=== PATIENT | male | born 1955 | race Caucasian/White ===

== ENCOUNTER 2020-04-16 16:52 | Emergency (ER) | payer MEDICARE, SELFPAY ==
--- NOTE | ~2020-04-16 | CT_ITS ---
EXAMINATION: CT abdomen pelvis w con DATE: 04/16/2020 20:37 INDICATION: Bilateral flank pain. TECHNIQUE: Computed tomography (CT) of the abdomen and pelvis was performed without intravenous contr ast. Automated exposure control and iterative reconstruction technique were employed. The dose-length product was 352.47 mGy-cm. COMPARISON: [facility] AIF 05/09/2014, chest CT 10/20/2018 FINDINGS: The visualized portions of the lung bases demonstrate mild atelectasis. No pleural effusion . The heart size is normal. No pericardial effusion. There is mild elevation of right hemidiaphragm. The liver, gallbladder, spleen, pancreas, and left adrenal gland are normal. There is a 1.4 cm mass i n right adrenal gland measuring soft tissue attenuation without change, consistent with an adenoma. T here is moderate atrophy of left kidney. There are cysts in the kidneys measuring up to 7 mm on the r ight. There is an 11 mm mass in right kidney measuring soft tissue attenuation. There is a 2.9 cm mas s in left kidney measuring soft tissue attenuation. There are no dilated loops of bowel. There is div erticulosis of the colon without evidence of diverticulitis. The appendix is not visualized. There ar e no pathologically enlarged lymph nodes. There is no free intraperitoneal fluid. 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 There is calcified atherosclerosis of the aorta and many of the other arteries. Th ere is severe stenosis of left renal artery. There is severe stenosis of infrarenal aorta. There are stents in the common iliac arteries. There is severe lower lumbar spondylosis. IMPRESSION: 1. 2.9 cm mass in left kidney suspicious for renal cell carcinoma. 11 mm mass in right kidney, which may be a hemorrhagic cyst or less likely a solid neoplasm. Abdomen CT or MRI without and with contras t is recommended. 2. Arterial occlusive disease including severe stenosis of left renal artery and severe stenosis of i nfrarenal aorta. Reviewed, dictated and finalized at location A. IMPRESSION: 1. 2.9 cm mass in left kidney suspicious for renal cell carcinoma. 11 mm mass i n right kidney, which may be a hemorrhagic cyst or less likely a solid neoplasm . Abdomen CT or MRI without and with contrast is recommended. 2. Arterial occlusive disease including severe stenosis of left renal artery an d severe stenosis of infrarenal aorta.
[2020-04-16 16:55] VITALS: BP 173/96; PULSE 122; RESP 20; TEMP 37.7; O2SAT 94
[2020-04-16 17:07] LABS: Basophils Absolute Auto 0.1 K/mm3 (0.0-0.1); Basophils Percent Auto 1.2 % (0.2-1.2); Eosinophils Percent Auto 0.5 % (0-4.4); Hematocrit 54.6 % (42.0-52.0); Hemoglobin 19.2 g/dL (14.0-18.0); Immature Granulocyte Absolute 0.03 K/mm3 (0.00-0.031); Immature Granulocyte Percent A 0.5 % (0-0.5); Lymphocytes Absolute Auto 0.86 K/mm3 (0.9-3.2); Lymphocytes Percent Auto 13.4 % (18.3-44.2); Mean Corpuscular HGB Conc 35.2 g/dl (32-36); Mean Corpuscular Hemoglobin 32.7 pg (26-34); Mean Corpuscular Volume 92.9 fl (80-100); Mean Platelet Volume 8.5 fl (7.4-10.4); Monocytes Absolute Auto 0.8 K/mm3 (0.1-0.6); Monocytes Percent Auto 12.6 % (2.6-8.5); Neutrophils Absolute Auto 4.6 K/mm3 (1.3-6.7); Neutrophils Percent Auto 71.8 % (45.5-73.1); Platelet Count Result 334 k/mm3 (150-375); Red Blood Count 5.88 M/mm3 (4.6-6.20); Red Cell Distribution Width 14.8 % (11.5-14.5); White Blood Count 6.4 K/mm3 (4.5-10.0)
[2020-04-16 17:19] LABS: Blood Urea Nitrogen 10 mg/dL (9-20); Calcium 9.7 mg/dL (8.4-10.2); Carbon Dioxide 24 mmol/L (22-30); Chloride 97 mmol/L (98-107); Estimated CRCL calculation 77 ml/min; Estimated Glomerular Filt Rate > 60; Glucose 128 mg/dL (75-110); Potassium 3.6 mmol/L (3.4-5.0); Sodium 133 mmol/L (137-145)
[2020-04-16 20:04] LABS: Add Urine Microscopic? YES; Appearance Urine Clear (Clear); Bacteria Urine Trace /hpf; Bilirubin Urine Negative (Negative); Blood Urine Negative (Negative); Color Urine Yellow (Yellow); Glucose Urine UA Negative (Negative); Ketones Urine Negative (Negative); Leukocyte Esterase Ur Negative LEU/UL (Negative); Mucus Urine Rare /lpf; Nitrate Urine Negative (Negative); Protein Urine 1+ mg/dL (Negative); RBC Urine 0-2 /hpf (0-2); Specific Grav Ur 1.015 (1.001-1.035); Squamous Epithelial Cell Urine Few /hpf (Few); Urobilinogen Urine Negative mg/dL (<2.0); WBC Urine 0-3 /hpf
[2020-04-16 21:01] LABS: Lactic Acid Reflex 0.8 mmol/L (0.7-2.1)
[2020-04-16 21:05] LABS: CRP < 0.5 mg/dL (<1.0)
[2020-04-16] MEDS: SODIUM CHLORIDE 0.9% IV 1,000 ML 999 ML IV CONT (21:29)
[2020-04-16 21:34] VITALS: BP 152/97; PULSE 88; RESP 14; TEMP 36.9; O2SAT 94
--- NOTE | 2020-04-16 22:17 | ED.BACK ---
HPI - Back Pain/Injury General Chief Complaint: Back Pain/Injury Stated Complaint: back pain Time Seen by Provider: 04/16/20 19:22 Source: patient Mode of arrival: ambulatory Limitations: no limitations History of Present Illness HPI Narrative: This is a 65 year old male that presents to the ER for low back pain x 3 days. No known injuries or trauma. Pain is worse with movement and relieved with rest. Does have history of low back problems. Denies fever, chest pain, shortness of breath, abdominal pain, vomiting, numbness, or bowel/bladder incontinence, dysuria or hematuria. Related Data Home Medications Medication Instructions Recorded Confirmed aspirin 81 mg tablet,delayed 81 mg PO DAILY 10/06/19 release cholecalciferol (vitamin D3) 50 50 mcg PO DAILY 10/06/19 mcg (2,000 unit) capsule pantoprazole 40 mg tablet,delayed 40 mg PO QAM 10/06/19 release Allergies Allergy/AdvReac Type Severity Reaction Status Date / Time lisinopril Allergy Severe mind Verified 04/08/20 13:17 alterations Review of Systems Review of Systems: Narrative: CONSTITUTIONAL: Denies fever CARDIOVASCULAR: Denies chest pain RESPIRATORY: Denies dyspnea. GASTROINTESTINAL: Denies abdominal pain, nausea, vomiting GENITOURINARY: Denies dysuria or hematuria. SKIN: Denies rash MUSCULOSKELETAL: Reports back pain, joint pain, and myalgia. NEUROLOGIC: Denies numbness, or weakness. All systems reviewed & are unremarkable except as noted in HPI and below PMFSH Social History Social History Smoking status: Former smoker Smoking end date: 09/30/16 Alcohol intake: current Exam Narrative: Exam Narrative: GENERAL: Well-appearing, well-nourished, and in no acute distress. HEAD: Normocephalic, atraumatic. EYES: EOMI. CHEST: Clear to auscultation. No respiratory distress. No wheezes rales or rhonchi HEART: Regular rate and rhythm. No murmur heard. Normal peripheral pulses. ABDOMEN: Soft, nontender, nondistended, normal active bowel sounds. BACK: No midline spinal tenderness EXTREMITIES: Normal range of motion. No edema. Strength equal in bilateral lower extremities (5/5). DP pulses reduced, but palpable. Feet are warm SKIN: Warm, dry, no rash. NEURO: No focal deficits. Alert and oriented x3. Normal gait PSYCH: Normal mood and affect Course Consultations Consultation #1: Spoke with patient's primary health information clerk, Dr. Contreras about work-up. Patient will follow-up in clinic. Date: 04/16/20 Time: 22:55 Vital Signs Vital signs: Vital Signs Temperature 99.9 F H 04/16/20 16:55 Pulse Rate 122 H 04/16/20 16:55 Respiratory Rate 20 04/16/20 16:55 Blood Pressure 173/96 H 04/16/20 16:55 Pulse Oximetry 94 04/16/20 16:55 Temperature 98.5 F 04/16/20 21:34 Pulse Rate 88 04/16/20 21:34 Respiratory Rate 14 04/16/20 21:34 Blood Pressure 152/97 H 04/16/20 21:34 Pulse Oximetry 94 04/16/20 21:34 MDM - Back Pain/Injury MDM Narrative Medical decision making narrative: Patient presents the emergency department for low back pain x3 days. No known injuries or trauma. Tachycardic upon arrival, this improved with IV fluids. Blood pressure elevated upon arrival, this improved after pain medication. CBC shows hemoconcentration. Metabolic panel also with evidence of mild dehydration. UA with 1+ protein and hyaline casts. Lactic acid and CRP are not elevated. CT scan of the abdomen and pelvis shows a 2.9 cm mass in the left kidney suspicious for renal cell carcinoma. Also shows 11 mm mass in the right kidney which may be hemorrhagic cyst or a solid neoplasm less likely. Recommend follow-up with further abdominal imaging. Also shows arterial occlusive disease with stenting of the common iliac arteries. Patient and family updated on case findings. Spoke with patient's primary health information clerk, Dr. Contreras about work-up. Patient will follow-up in clinic. Patient is stable and fel
[2020-04-16 23:12] VITALS: BP 143/91; PULSE 79; RESP 16; TEMP 36.8; O2SAT 98
== END 2020-04-16 23:12 | disposition home or self-care (01) ==
PROVIDERS: Emergency Medicine; Physician Assistant; Emergency Provider Emergency Medicine
DX: N28.89 Other specified disorders of kidney and ureter (principal); M54.5 Low back pain; Z87.891 Personal history of nicotine dependence; I70.1 Atherosclerosis of renal artery
CPT/HCPCS: 36415; 74177; 80048; 81001; 83605; 85025; 86140; 96361; 96374; 96375; 99284; J0131; J3360; J7030; Q9967

== ENCOUNTER 2020-05-18 14:38 | Outpatient (CLI) | payer MEDICARE, SELFPAY ==
--- NOTE | ~2020-05-18 | MR_ITS ---
EXAMINATION: MR abdomen wo/w con, MR pelvis wo/w con DATE: 05/18/2020 16:34 INDICATION: Right renal neoplasm TECHNIQUE: 1. Magnetic resonance imaging (MRI) of the abdomen was performed without and with 15 mL Multihance in travenous contrast. Sequences included coronal T2-weighted SS-FSE, coronal and axial FS 2D-FIESTA, a xial STIR FSE, axial T2-weighted SS-FSE, axial T2-weighted FS SS-FSE, axial diffusion-weighted SE, ax ial dual-echo T1-weighted FSPGR, and axial and coronal T1-weighted LAVA. Postcontrast axial T1-weight ed LAVA images were obtained in a time course. Postcontrast coronal T1-weighted LAVA images were obta ined. 2. MRI of the pelvis was performed without and with 15 mm MultiHance intravenous contrast utilizing t he same contrast bolus. Sequences of the pelvis included axial and coronal T2-weighted SS FSE, axial and coronal 2D FIESTA, axial and coronal T1 weighted LAVA, axial dual-echo T1-weighted FSPGR and axia l diffusion-weighted SE, axial STIR FSE and postcontrast axial and coronal T1-weighted LAVA. COMPARISON: CT dated 04/16/2020 FINDINGS: Arch size is normal. No pericardial or pleural effusion. There are a few tiny T2 hyperintense nonenha ncing hepatic cysts. Gallbladder, spleen, pancreas and left adrenal gland are normal. 13 mm right adr enal adenoma with signal dropout on opposed phase images consistent with intracellular fat. Moderate scattered colonic diverticulosis without adjacent from trace stranding to suggest diverticulitis.. Paolo wels are otherwise unremarkable with no wall thickening or obstruction. The appendix is not visualize d. No pericecal inflammatory change to suggest acute appendicitis. Severe spondylosis at L5-S1. Bones are otherwise unremarkable with no pathologic marrow replacing process. No pathologically enlarged a bdominal or pelvic lymphadenopathy. Moderate left renal atrophy. There are nonenhancing cysts at the lower pole of the right kidney enter ing 10 mm and 7 mm and at the posterior interpolar region of the left kidney measuring 6 mm, each dem onstrating increased T1 and decreased T2 signal relative to simple fluid consistent with proteinaceou s/hemorrhagic cysts. Typical T2 hyperintense nonenhancing 5 mm cyst at the upper pole of the left kid matty. 2.8 cm heterogeneously enhancing mass at the lower pole of the left kidney consistent with renal cell carcinoma. Bladder is normal. Prostatomegaly. IMPRESSION: 1. 2.8 cm enhancing mass at the lower pole of the moderately atrophic left kidney consistent with perez al cell carcinoma. No evident metastatic disease. 2. Multiple small simple and proteinaceous/hemorrhagic cysts at both kidneys including the second les ion of prior concern at the right kidney. 3. 13 mm right adrenal adenoma. 4. Prostatomegaly. Reviewed, dictated and finalized at location A. IMPRESSION: 1. 2.8 cm enhancing mass at the lower pole of the moderately atrophic left kidn ey consistent with renal cell carcinoma. No evident metastatic disease. 2. Multiple small simple and proteinaceous/hemorrhagic cysts at both kidneys in cluding the second lesion of prior concern at the right kidney. 3. 13 mm right adrenal adenoma. 4. Prostatomegaly.
[2020-05-18 15:18] LABS: Estimated Glomerular Filt Rate 51
== END 2020-05-18 14:39 | disposition home or self-care (01) ==
PROVIDERS: Visit Provider Urology
DX: D47.01 Cutaneous mastocytosis (principal); D35.01 Benign neoplasm of right adrenal gland; N40.0 Benign prostatic hyperplasia without lower urinary tract symptoms
CPT/HCPCS: 36415; 72197; 74183; A9577

== ENCOUNTER 2020-11-23 15:26 | Outpatient (CLI) | payer MEDICARE, SELFPAY ==
--- NOTE | ~2020-11-23 | CT_ITS ---
EXAMINATION: CT abdomen pelvis wo/w con DATE: 11/23/2020 16:24 INDICATION: Left kidney cancer. TECHNIQUE: Computed tomography (CT) of the abdomen and pelvis was performed without and with 100 mL O mnipaque 350 intravenous contrast. Automated exposure control and iterative reconstruction technique were employed. The dose-length product was 748.80 mGy-cm. COMPARISON: CT abdomen and pelvis 04/16/2020 FINDINGS: The visualized portions of the lung bases demonstrate mild atelectasis. No pleural effusion . The heart size is normal. There are coronary artery calcifications. No pericardial effusion. There is a 4 mm cyst in the liver. The gallbladder, spleen, pancreas, and left adrenal gland are normal. Th ere is a 13 mm mass measuring low-attenuation the right adrenal gland, consistent with an adenoma. Th ere are cysts in right kidney measuring up to 12 mm. There is severe atrophy of left kidney. There ar e cysts in left kidney measuring up to 7 mm. There are changes of ablation of left kidney inferior po le. There is a 2.2 cm nonenhancing mass in left kidney inferior pole, decreased from 2.6 cm. There is diverticulosis of the colon without evidence of diverticulitis. There are no dilated loops of bowel. The appendix is normal. 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 There is calcified atheroscl erosis of the aorta and many of the other arteries. There is a patent stent in the infrarenal inferio r vena cava. There are patent stents in the common iliac arteries. There is a patent stent in right e xternal iliac artery and common femoral artery. There is severe stenosis versus total occlusion of le ft external iliac artery. There is a patent femorofemoral bypass graft. There is a stent in proximal right superficial femoral artery. There is no free intraperitoneal fluid. There are no pathologically enlarged lymph nodes. There is severe lower lumbar spondylosis. IMPRESSION: 1. Ablation changes in left kidney inferior pole with interval decrease in size of the lower pole mas s. No enhancement of the mass to suggest viable tumor. Reviewed, dictated and finalized at location A. PING AND RECEIVING IMPRESSION: 1. Ablation changes in left kidney inferior pole with interval decrease in size of the lower pole mass. No enhancement of the mass to suggest viable tumor.
[2020-11-23 16:06] LABS: Estimated Glomerular Filt Rate 51
== END 2020-11-23 15:27 | disposition home or self-care (01) ==
PROVIDERS: PCP Family Medicine; Visit Provider Urology
DX: D41.01 Neoplasm of uncertain behavior of right kidney (principal)
CPT/HCPCS: 74178; Q9967

== ENCOUNTER 2021-05-25 10:49 | Outpatient (CLI) | payer MEDICARE, SELFPAY ==
--- NOTE | ~2021-05-25 | CT_ITS ---
EXAMINATION: CT abdomen pelvis wo/w con DATE: 05/25/2021 11:27 INDICATION: Neoplasm of uncertain behavior of the right kidney. TECHNIQUE: Computed tomography (CT) of the abdomen and pelvis was performed without and with 100 mL O mnipaque-350 intravenous contrast. Automated exposure control and iterative reconstruction technique were employed. The dose-length product was 888.80 mGy-cm. COMPARISON: 11/23/2020 FINDINGS: Mild emphysema at the lung bases. Heart size normal. No pericardial or pleural effusion. Atherosclero tic coronary artery calcification. Liver, gallbladder, spleen, pancreas and left adrenal gland are no rmal. Unchanged 1.4 cm right adrenal adenoma. A couple nonenhancing right renal cysts, the larger a 1 .1 cm hyperdense proteinaceous/hemorrhagic cyst. Additional 11 mm nonenhancing cyst at the lower pole of the severely atrophic left kidney. No interval change in a 2.1 x 1.5 cm nonenhancing mass at the lower pole of the left kidney consistent with ablation of the previously 3.0 cm enhancing mass consis tent with renal cell carcinoma. Moderate diverticulosis with a descending and sigmoid colon predomina nce without adjacent from trace stranding to suggest diverticulitis. Small bowel and appendix are nor mal. Partially decompressed bladder is unremarkable. Postoperative change of prior left inguinal hernia mesh repair. There is calcified atherosclerosis of the aorta and many of the other arteries. The inferior mesenteric artery is occluded but reconstitut es via collaterals. High-grade stenosis of the left renal artery. Patent stents are seen in the infra renal aorta, bilateral common iliac, right external iliac and proximal right femoral arteries. Dense atherosclerotic calcification suggesting either complete occlusion or high-grade stenosis at the bila teral internal iliac arteries and left external iliac artery. Patent femoral-femoral bypass graft. No free intraperitoneal gas or fluid. No pathologically enlarged abdominal or pelvic lymphadenopathy. M ild thoracolumbar dextrocurvature with severe lumbosacral spondylosis and mild spondylosis in the mor e cephalad thoracolumbar spine. IMPRESSION: 1. Stable appearance of 2.1 x 1.5 cm nonenhancing mass at the lower pole of the left kidney consisten t with postablation changes of prior likely renal cell carcinoma. No evident enlarging or enhancing r esidual/recurrent tumor. 2. Diverticulosis. 3. Extensive atherosclerotic disease with multiple stents, femoral-femoral bypass grafting and high-g rade stenoses/occlusions as detailed above. Reviewed, dictated and finalized at location B. IMPRESSION: 1. Stable appearance of 2.1 x 1.5 cm nonenhancing mass at the lower pole of the left kidney consistent with postablation changes of prior likely renal cell ca rcinoma. No evident enlarging or enhancing residual/recurrent tumor. 2. Diverticulosis. 3. Extensive atherosclerotic disease with multiple stents, femoral-femoral bypa ss grafting and high-grade stenoses/occlusions as detailed above.
--- NOTE | ~2021-05-25 | XR_ITS ---
EXAMINATION: XR chest 2V EXAM DATE: 05/25/2021 11:09 INDICATION: Right kidney cancer. TECHNIQUE: Frontal and lateral projections of the chest obtained and reviewed. Comparison is made to prior examination from 02/25/17. FINDINGS: The lungs are hyperinflated which can be seen with chronic obstructive pulmonary disease (a clinical diagnosis of functional impairment), but is not diagnostic of it. The lungs are clear. The re are no pleural effusions. The cardiomediastinal silhouette is within normal limits. There is no pneumothorax suspected. The bones and soft tissues are unremarkable. There is aortic arteriosclero sis. IMPRESSION: Hyperinflation, otherwise unremarkable exam. Reviewed, dictated and finalized at location A.
[2021-05-25 11:17] LABS: Estimated Glomerular Filt Rate 47
== END 2021-05-25 10:50 | disposition home or self-care (01) ==
LOC: ANHIMG 10:50
PROVIDERS: PCP Family Medicine; Visit Provider Urology
DX: D41.01 Neoplasm of uncertain behavior of right kidney (principal); K57.30 Diverticulosis of large intestine without perforation or abscess without bleeding; I70.0 Atherosclerosis of aorta; R91.8 Other nonspecific abnormal finding of lung field
CPT/HCPCS: 71046; 74178; Q9967

== ENCOUNTER → 2021-07-04 02:46 | Outpatient (CLI) | payer MEDICARE, SELFPAY ==
[2021-07-04 19:14] LABS: SARS-CoV-2 RNA PCR Negative
== END ==
PROVIDERS: PCP Family Medicine; Visit Provider Family Medicine
DX: Z20.822 Contact with and (suspected) exposure to COVID-19 (principal)
CPT/HCPCS: C9803; U0003; U0005

== ENCOUNTER 2021-10-18 13:52 | Outpatient (CLI) | payer MEDICARE, SELFPAY ==
--- NOTE | ~2021-10-18 | XR_ITS ---
EXAMINATION: XR chest 2V DATE: 10/18/2021 14:17 INDICATION: Cough. TECHNIQUE: Frontal and lateral views of the chest were obtained. COMPARISON: Chest 2 views 05/25/2021, CT abdomen and pelvis 05/25/2021 FINDINGS: There is mild scarring at the lung apices. No pleural effusion or pneumothorax. The heart s ize is normal. IMPRESSION: 1. Stable mild scarring at the lung apices. Reviewed, dictated and finalized at location A. RETREADER
== END 2021-10-18 13:53 | disposition home or self-care (01) ==
LOC: ANHIMG 13:57
PROVIDERS: PCP Family Medicine; Visit Provider Nurse Practitioner
DX: R05.9 Cough, unspecified (principal); R91.8 Other nonspecific abnormal finding of lung field
CPT/HCPCS: 71046

== ENCOUNTER 2021-12-05 13:03 | Outpatient (CLI) | payer MEDICARE, SELFPAY ==
--- NOTE | ~2021-12-05 | XR_ITS ---
EXAMINATION: XR lumbar spine 2-3V DATE: 12/05/2021 13:23 INDICATION: Chronic low back pain TECHNIQUE: Anteroposterior and lateral views of the lumbar spine, and cone-down lateral view of the l umbosacral junction were obtained. COMPARISON: 05/09/2014 FINDINGS: There is no fracture, dislocation, or subluxation. The vertebral body heights are maintaine d. There is unchanged severe loss of intervertebral disc space height at L5-S1 and chronic mild loss of intervertebral disc space height at L3-4 and L4-5. There has been interval endoluminal stent graft placement in the abdominal aorta and left common iliac artery. Small degenerative osteophytes projec t from the anterior endplates of multiple vertebral bodies. IMPRESSION: 1. Moderate lumbar spondylosis without acute findings or significant interval change. Reviewed, dictated and finalized at location B. NT [employer]
== END 2021-12-05 13:04 | disposition home or self-care (01) ==
LOC: ANHIMG 13:06
PROVIDERS: PCP Family Medicine; Visit Provider Family Medicine
DX: M47.816 Spondylosis without myelopathy or radiculopathy, lumbar region (principal)
CPT/HCPCS: 72100

== ENCOUNTER 2021-12-11 14:41 | Outpatient (CLI) | payer MEDICARE, SELFPAY ==
--- NOTE | ~2021-12-11 | CT_ITS ---
EXAMINATION:CT lung screening DATE: 12/11/2021 15:02 INDICATION: Personal history of nicotine dependence. Smoker who quit 5 years ago with 50 pack year hi story. TECHNIQUE: Computed tomography (CT) of the chest was performed without intravenous contrast. Automate d exposure control and iterative reconstruction technique were employed. The dose-length product (DLP ) was 110.24 mGy-cm. COMPARISON: Chest CT 10/20/2018 FINDINGS: There is moderate emphysema. There is mild scarring at the lung apices. There is mild atele ctasis bilaterally. There is a 2 mm nodule in right upper lobe. No pleural effusion. The heart size i s normal. There are coronary artery calcifications. There is a small pericardial effusion. There is m oderate atrophy of left kidney. There is thoracic levoscoliosis and mild spondylosis. IMPRESSION: 1. Lung-RADS category 2: Benign appearance or behavior. Continue annual screening with noncontrast lo w-dose chest CT in 12 months. Reviewed, dictated and finalized at location A. IMPRESSION: 1. Lung-RADS category 2: Benign appearance or behavior. Continue annual screeni ng with noncontrast low-dose chest CT in 12 months.
== END 2021-12-11 14:42 | disposition home or self-care (01) ==
PROVIDERS: PCP Family Medicine; Visit Provider Family Medicine
DX: Z12.2 Encounter for screening for malignant neoplasm of respiratory organs (principal); Z87.891 Personal history of nicotine dependence
CPT/HCPCS: 71271

== ENCOUNTER 2022-12-18 13:42 | Outpatient (CLI) | payer MEDICARE, SELFPAY ==
--- NOTE | ~2022-12-18 | CT_ITS ---
CT Scan of the Chest without Contrast: Clinical Indication: Pulmonary nodules Technique: Contiguous sections were acquired throughout the chest without intravenous contrast. Dose reduction technique was used on this scan by utilizing automated exposure control and iterative recon struction technique. The dose-length product (DLP) was 97.90 mGy-cm. COMPARISON: 12/11/2021 and 10/20/2018 Findings: There is no evidence of any significant mediastinal, hilar or axillary lymphadenopathy. There are ath erosclerotic calcifications of the aorta. Coronary artery calcifications are present. There is no evidence of pleural or pericardial effusion. Table 2 mm right upper lobe pulmonary nodule. Stable 4 mm left lower lobe pulmonary nodule (axial titi ge 94). Images through the upper abdomen reveal no abnormalities. Impression: Stable pulmonary nodules, as noted above. Stability since 2018 is indicative of benignity. Reviewed, dictated and finalized at [facility]. Impression: Stable pulmonary nodules, as noted above. Stability since 2019 is indicative of benignity.
== END 2022-12-18 13:43 | disposition home or self-care (01) ==
PROVIDERS: PCP Family Medicine; Visit Provider Nurse Practitioner
DX: R91.8 Other nonspecific abnormal finding of lung field (principal)
CPT/HCPCS: 71250